=== PATIENT | female | born 1970 | race Caucasian/White ===

== ENCOUNTER 2018-05-01 13:10 | Emergency (ER) | payer OTHER ==
[2018-05-01 14:10] VITALS: BP 125/61
--- NOTE | 2018-05-01 14:38 | RAD ---
INDICATION: Right knee injury. TECHNIQUE: 4 views of the right knee were obtained. FINDINGS: There is soft tissue swelling in the region of the medial collateral ligament. The bones are in normal alignment. There is a small joint effusion present. No fracture is seen. Joint spaces appear maintained. IMPRESSION: 1. SMALL JOINT EFFUSION NO FRACTURE IS SEEN. 2. SOFT TISSUE SWELLING IN THE REGION OF THE MEDIAL COLLATERAL LIGAMENT.
--- NOTE | 2018-05-01 15:13 | UC ---
Knee Pain HPI - HPI Summary HPI Summary: patient injury right knee 2 days ago---pain in distal medial area of knee with swelling - History of Current Complaint Chief Complaint: UCLowerExtremity Stated Complaint: RT KNEE COMP Time Seen by Provider: 05/01/18 14:14 Hx Obtained From: Patient Hx Last Menstrual Period: 04/08/18 ?: No Onset/Duration: Sudden Onset, Lasting Days - 2 Location Of Injury: right medial distal area of knee Pain Intensity: 6 Pain Scale Used: 0-10 Numeric Character: Aching, Throbbing Aggravating Factor(s): Movement, Weight Bearing Alleviating Factor(s): Rest, Position Associated Signs And Symptoms: Positive: Swelling Able to Bear Weight: Yes - Allergies/Home Medications Allergies/Adverse Reactions: Allergies Allergy/AdvReac Type Severity Reaction Status Date / Time cefaclor Allergy Hives Verified 05/01/18 14:03 metronidazole Allergy Vomiting Verified 05/01/18 14:03 Home Medications: Home Medications Gabapentin [Gralise] 600 mg PO DAILY 05/01/18 [History Confirmed 05/01/18] Methocarbamol TAB* [Robaxin 500 MG TAB*] 500 mg PO TID PRN 05/01/18 [History Confirmed 05/01/18] PMH/Surg Hx/FS Hx/Imm Hx Previously Healthy: No - neck surgery and chronic pain Cardiovascular History: Hypertension GI/ History: Gastroesophageal Reflux - Surgical History Surgical History: Yes Surgery Procedure, Year, and Place: LT KNEE ARTHROSCOPIC. TUBAL. NECK FUSION - Family History Known Family History: Positive: None - Social History Occupation: Disabled Lives: With Family Alcohol Use: None Substance Use Type: None Smoking Status (MU): Heavy Every Day Tobacco Smoker Type: Cigarettes Amount Used/How Often: 1/2 ppd Have You Smoked in the Last Year: No Cessation Counseling: Patient Advised to Stop Review of Systems Constitutional: Negative Skin: Negative Eyes: Negative ENT: Negative Respiratory: Negative Cardiovascular: Negative Gastrointestinal: Negative Genitourinary: Negative Motor: Negative Neurovascular: Negative Musculoskeletal: Arthralgia - right knee Neurological: Negative Psychological: Negative Is Patient Immunocompromised?: No All Other Systems Reviewed And Are Negative: Yes Physical Exam Triage Information Reviewed: Yes Appearance: Well-Appearing, No Pain Distress, Well-Nourished Vital Signs: Initial Vital Signs Temp 98.3 F 05/01/18 13:56 Pulse 84 05/01/18 13:56 Resp 16 05/01/18 13:56 BP 125/61 05/01/18 13:56 Pulse Ox 99 05/01/18 13:56 Vital Signs Reviewed: Yes Eye Exam: Normal Eyes: Positive: Conjunctiva Clear ENT Exam: Normal ENT: Positive: Normal ENT inspection, Hearing grossly normal, Pharynx normal, TMs normal. Negative: Nasal congestion, Tonsillar swelling, Trismus Dental Exam: Normal Neck exam: Normal Neck: Positive: Supple, Nontender Respiratory Exam: Normal Respiratory: Positive: Chest non-tender, No respiratory distress, No accessory muscle use Cardiovascular Exam: Normal Cardiovascular: Positive: RRR, Pulses Normal, Brisk Capillary Refill Abdominal Exam: Normal Musculoskeletal Exam: Other Musculoskeletal: Positive: Strength Intact, ROM Intact, Edema @ - right knee Neurological Exam: Normal Neurological: Positive: Alert, Muscle Tone Normal Psychological Exam: Normal Skin Exam: Normal Diagnostics - Radiology No standard instances Xray Interpretation: Positive (See Comments) Radiology Interpretation Completed By: ED Physician, Radiologist - Patient Name : MARIA LUISA GUO Medical Record#: [id number] Ordering Physician: Sheree Yang PRINCIPAL STATISTICAL SCIENTIST Acct.#: [id number] : 1970 Age: 47 Sex: F Location: [facility] Exam Date : 05/01/181416 ADM Status: REG ER Order Information: KNEE RIGHT 4+ VWS Accession Number: [id number] CPT: 35118 INDICATION: Right knee injury. TECHNIQUE: 4 views of the right knee were obtained. FINDINGS: There is soft tissue swelling in the region of the medial collateral ligament. The bones are in normal alignment. There is a small joint effusion present. No fracture is seen. Joint spaces appear maintained. IMPRESSION: 1. SMALL JOINT EFFUSION NO FRACTURE IS SEEN. 2. SOFT TISSUE SWELLING IN THE REGION OF THE MEDIAL COLLATERAL LIGAMENT. __ <Electronically signed by Jake Nicholas MD in [place]> 05/01/18 1435 Dictated By: Jake Nicholas MD Dictated Date/Time: 05/01/18 1435 Transcribed Date/Time: 05/01/18 1433 Copy to: CC:Sheree Yang PRINCIPAL STATISTICAL SCIENTIST; Evonne Gómez MD; Marleny LEIJAP Imaging - [facility] Imaging - [facility] - [facility] [address] [place] [id number] [address] [address] ph [phone]) ph [phone]) ph ([phone]) 1 of 1 Knee Pain Course/Dx - Course Course Of Treatment: rest ie compression elevatio, knee immoblizer and NWB, follow with Dr. Dahl this week - Differential Dx/Diagnosis Provider Diagnoses: right knee internal de-arangement Discharge - Sign-Out/Discharge Documenting (check all that apply): Discharge/Admit/Transfer - Discharge Plan Condition: Stable Disposition: HOME Patient Education Materials: Ibuprofen (By mouth), Knee Sprain (ED), Crutch Instructions (ED), R.I.C.E. Treatment (ED) Referrals: Zach Dahl MD [Medical Doctor] - 3 Days - Billing Disposition and Condition Condition: STABLE Disposition: Home
== END 2018-05-01 15:20 | disposition home or self-care (01) ==
LOC: UCCORT 13:10
DX: M23.8X1 Other internal derangements of right knee (principal); Z88.1 Allergy status to other antibiotic agents; I10 Essential (primary) hypertension; F17.210 Nicotine dependence, cigarettes, uncomplicated
CPT/HCPCS: 99203; G0463